=== PATIENT | male | born 1925 | race Caucasian/White ===

== ENCOUNTER 2016-08-09 10:29 | Inpatient (IN) | payer MEDICARE, BC ==
[~2016-08-09] VITALS: Ht 185.4 cm; Wt 89.9 kg
--- NOTE | ~2016-08-09 | HP ---
[facility] AGE[facility] 89 Y [address] ROOM: [place] [address] LOCATION: [facility] [place] ADMIT DATE: 08/09/2016 History & Physical DISCHARGE DATE: FAMILY PHYSICIAN: PHYSICIAN, UNKNOWN ATTENDING PHYSICIAN: Ayo Salcido DATE OF SERVICE: HISTORY OF PRESENT ILLNESS: This is an 89-year-old male who has had a gradual onset of voiding symptoms with daytime frequency every 1 hour, hesitancy, difficulty voiding, voiding small amounts. His symptoms are much worse at night. He also has had some recurrent bouts of gross hematuria. He has a past history of having a TUR of the prostate in the past. This was done in 2001. He was seen in the office on 10 July, at that time his residual urine was 385 mL. He was on Ditropan and Flomax, so the Ditropan ER 5 mg twice a day was discontinued, but this did not improve his voiding symptoms, and according to his son, he continues to have marked hesitancy, frequency, and difficulty voiding. He is seen now for suprapubic cystostomy. PAST MEDICAL HISTORY AND ILLNESSES: 1. Peptic ulcer disease. 2. Hypertension. 3. Osteoarthritis. 4. Diabetes mellitus. OPERATIONS: 1. Cholecystectomy. 2. Bilateral total knees, total hip. 3. TUR of the prostate. ALLERGIES: CELEBREX, GLIPIZIDE. PHYSICAL EXAMINATION: GENERAL: Well-developed, well-nourished male. VITAL SIGNS: 196 pounds, 138/75. CHEST: Clear. HEART: Normal sinus rhythm. ABDOMEN: Soft with no palpable masses. : Normal penis. Testicles are normal. Prostate is flat and benign to PAT[facility]GE[facility] 89 Y [address] ROOM: [place] [address] LOCATION: [facility] [place] ADMIT DATE: 08/09/2016 History & Physical DISCHARGE DATE: FAMILY PHYSICIAN: PHYSICIAN, UNKNOWN ATTENDING PHYSICIAN: Ayo Salcido palpation. RECTAL: Negative. IMPRESSION: Urinary retention with voiding symptoms. PLAN: As above. AYO K MD AIMEE EKL/modl /[id number] CC: Félix Farrell MD D: [id number] T: [id number] HISTORY & PHYSICAL
--- NOTE | ~2016-08-09 | OR ---
PATIENT'S NAME: MARGUERITE ANGELA [facility] AGE: 89 Y [address] ROOM: [place] [address] [place] [facility] [place]: 08/09/2016 OR/Procedure Report DISCHARGE DATE: FAMILY PHYSICIAN: Félix Farrell MD ATTENDING PHYSICIAN: Edmar Salcido SURGEON: Edmar Salcido MD NANNY BABYSITTER: DATE OF PROCEDURE: 08/09/2016 PREOPERATIVE DIAGNOSIS: Retention with voiding symptoms. 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 PROCEDURES: 1. Cystoscopy, TUR of prostate. 2. TUR of bladder tumor. DESCRIPTION OF PROCEDURE: After adequate anesthesia, he was prepped and draped. Cystoscope was passed. The anterior urethra was normal. He had an enlarged nodular regrowth going off the left side at the bladder neck area and then there was transitional cell carcinoma in the bladder, both on the right and left side, and at the bladder neck area where his BPH regrowth was. Resectoscope was inserted and the prostatic tissue was resected so that I could get to the transitional cell carcinoma of the bladder at the bladder neck area and then the tumor was then resected. Also, multiple tumors throughout the bladder were resected and fulgurated. 20 three-way Sepulveda catheter was inserted and he was accompanied to recovery area. EDMAR SALCIDO MD EKL/modl /[id number] CC: Féilx Farrell MD d: 08/09/16 1839 t: 08/13/16 0446, OPERATIVE SUMMARY
--- NOTE | ~2016-08-09 | DS ---
PATIENT'S NAME: MARGUERITE ANGELA [facility] AGE: 89 Y [address] ROOM: [place] [address] LOCATION: [facility] [place] ADMIT DATE: 08/09/2016 Discharge Summary DISCHARGE DATE: FAMILY PHYSICIAN: Félix Farrell MD ATTENDING PHYSICIAN: Edmar Salcido HOSPITAL COURSE: An 89-year-old male, who has had voiding symptoms and urinary retention, to have a suprapubic cystostomy. 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 He also had tumor around the bladder neck area on this side. Therefore, this area the prostate was resected and then the bladder tumors were all resected and fulgurated. He was admitted to [address] [place] [address]. He did fine until the following morning, he had some gross hematuria clots. He was taken back to the cysto room for evacuation of clots and fulguration of bleeders. His remaining hospital course was unremarkable and he was diagnosis home. DIAGNOSES: 1. Urinary retention. 2. Benign prostatic hyperplasia. 3. Transitional cell carcinoma of the bladder. OPERATIONS: 1. TUR of the prostate. 2. TUR of bladder tumors. 3. Cystoscopy evacuation of clots and fulguration of bleeders. DISPOSITION: We will keep in contact with a nursing homes and when he is stable, we will have to remove his Sepulveda catheter. EDMAR SALCIDO MD EKL/modl /[id number] CC: Félix Farrell MD d: 08/14/16816 t: 08/15/16 0437, DISCHARGE SUMMARY
--- NOTE | ~2016-08-09 | OR ---
PATIENT'S NAME: MARGUERITE ANGELA [facility] AGE: 89 Y [address] ROOM: [place] [address] LOCATION: [facility] [place] ADMIT DATE: 08/09/2016 OR/Procedure Report DISCHARGE DATE: FAMILY PHYSICIAN: Félix Farrell MD ATTENDING PHYSICIAN: Ayo Salcido SURGEON: Ayo Salcido MD COW TENDER: DATE OF PROCEDURE: 08/09/2016 PREOPERATIVE DIAGNOSIS: Postop bleeding. POSTOPERATIVE DIAGNOSES: 1. Postop bleeding. 2. Bladder clots. PROCEDURES PERFORMED: 1. Evacuation of clots. 2. Fulguration of bleeding areas. INDICATIONS: The patient had TUR of a bladder tumor yesterday. He did fine until early this morning when his urine turned grossly bloody and would not clear with continuous bladder irrigation. He was then taken to the cysto room. DESCRIPTION OF PROCEDURE: After adequate anesthesia, he was prepped and draped. A resectoscope was inserted, and with the Frannie evacuator, all the clots were irrigated from the bladder. Examination revealed some bleeding from the prostatic area, and in the bladder, one of the tumor sites, there was an inadequate clot. This was dissected off the base of the resection site, and the bleeding area was fulgurated. A 20, three-way Sepulveda catheter was inserted and irrigated easily and clearly, and he was accompanied to the recovery area. AYO SALCIDO MD EKL/modl /[id number] d: 08/10/161830 t: 08/14/16 0448, OPERATIVE SUMMARY
[~2016-08-09 10:29] MED LIST: AMARYL4 MG PO; AMBIEN5 MG PO; ASPIRIN EC81 MG PO; DULCOLAX10 MG R; FLOMAX0.4 MG PO; GLUCOPHAGE1000 MG PO; HYDRODIURIL25 MG PO; LACTULOSE10 GM/151 PO; LEVEMIR100 UNIT/1 SUB-Q; MILK OF MA400 MG/5 M PO; MOBIC15 MG PO; OXYGEN M-15 INH; PAIN RELIEVER325 MG PO; PRINIVIL OR ZES10 MG PO; PROTONIX40 MG PO; ROBITUSSIN DM120 ML PO; TOPROL XL25 MG PO; ULTRAM50 MG PO; VITAMIN D-32000 UNI1 PO; XANAX0.25 MG PO; [UNRECOGNIZED DRUG - OTHER] PO
[2016-08-09 11:27] LABS: BASOPHIL % 0.3 %; EOSINOPHIL # 0.1 K/uL (0.0-0.5); EOSINOPHIL % 1.7 %; HEMOGLOBIN 13.5 g/dL (11.0-16.0); IMMATURE GRANULOCYTE % 0.4 %; LYMPHOCYTE # 1.2 K/uL (0.8-4.0); LYMPHOCYTE % 17.4 %; MCH 27.3 pg (27.0-34.0); MCHC 33.8 gm/dL (32.0-36.5); MONOCYTE # 0.6 K/uL (0.0-1.0); MONOCYTE % 8.7 %; MPV 9.1 fl (9.4-12.4); NEUTROPHIL # (ANC) 5.1 K/uL (1.4-9.0); NEUTROPHIL % 71.5 %; NRBC % 0 /100WBC (0-0.00); PLATELET COUNT 191 K/uL (150-450); RDW-CV 14.1 % (11.9-14.6); WBC 7.1 K/uL (4.0-11.0)
[2016-08-09 11:30] LABS: RBC 4.94 M/uL (3.50-5.50)
--- NOTE | 2016-08-09 17:23 | NUR ---
Significant Event: Pt to floor from PACU at 1630 after a TURP. Bedrest. CBI running moderate rate, bloody at times then clears, probable bladder spasms, B&O prn. Clears, ADAT in am. [place] divya on left, hears a bit in right eye with hearing aid. In AFIB, telemetry ordered. Left leg brace on at all times d/t previous injury. Wears brace to right knee as needed. VS stable. Denies pain. a/o x3. Wears O2 at night. Bradycardiac in OR. Did dip to 37 briefly arrival to floor but popped right back up to 80's (AFIB). Follow up:
--- NOTE | 2016-08-10 05:14 | NUR ---
SIGNIFICANT EVENT: Patient alert &oriented. Denies pain. Hourly post op vitals from 1830 to 2130. RR 18 to 20, BP 139 to 144 over 76 to 83, P: 77 to 102, afebrile, 99 percent on 1L. B&O suppository on day shift at approx 1805, none this shift. Nucynta at 2150, Xanax at HS as scheduled. HSBG of 206, 2 units of Novolog given. L) leg brace on at all times, R) knee brace can be left off unless patient complains of pain in that extremity. IV to R) lateral FA infusing 1/2 NS. Bedrest. CBI running Moderately fast to attain light pink urine. Pleasant and cooperative with cares.
--- NOTE | 2016-08-10 14:29 | NUR ---
1200 Talked to charge nurse at [facility] in and confirmed that they would accept pt back this weekend after discharge if there were no med changes via nursing staff. Charge nurse stated that they would be able to if it was certain that there was no changes in meds because they wouldn't be able to have access to get them over the weekend. ROSA Price stated that nursing staff was almost certian there would be no changes but if there is they would be able to sent a three-day supply or so. Told her I would fax over his information and gave her ROSA Mar number. Charge nurse called ROSA Price shortly after and told her that they could only take him over the weekend if family would transport. 200 ROSA Price introduced self and CM role to patient and got phone number for pt's daughter, Sparkle at [phone]. I called Sparkle and she stated she can transport her father this weekend, but would just need help with getting him out of her car once he got to the half-way. Chris Wrote information on fax cover sheet about daughter transporting and sent pt's updates to [facility] at [phone]. Dee put sticky note on pt's chart stating daughter will transport and numbers for the half-way. Plan home likely tomorrow 08/11. CM internet architect TH.
--- NOTE | 2016-08-10 15:00 | NUR ---
Significant Event: Pt back from PACU at 0900 after a fulguration of bleeders. Must lay completely flat, was uncomfortable this afternoon so Dr. Salcido said he can have his knees up slightly. CBI running slow, urine pink to clear. C/o back pain this afternoon, good relief with [place]. Tele called around 1400, states sinus 1st degree block, asymptomatic. clear liquids. [place]. VS stable. Follow up:
--- NOTE | 2016-08-11 03:12 | NUR ---
Had some confusion mid shift- wanted to get out of bed. Patient has settled down since then- has not slept much, but is A&O at this time. Bedrest. CBI running slow. Output the color of pink lemonade. Brace to left leg at all times. Brace to right knee PRN for weakness. IV right wrist SL. Accuchecks ACHS. Mild sliding scale. O2 @ 1 ltr. Telemetry. Can return to [facility] in [place] today if no new meds at discharge.
--- NOTE | 2016-08-11 17:04 | NUR ---
Significant event: Has been confused most of shift. Tried several times this am to get out of bed, reminded not to get up. Daughter here about noon and plans to stay the night with him. He has tried to get up while she is in there also and she reminds him not to get up. CBI continues urine pale pink to light red at times.
--- NOTE | 2016-08-12 04:19 | NUR ---
Alert. Confusion has cleared up since last night. Slept majority of shift. No restlessness or pulling at tubes/lines. Bedrest. CBI running slowly. Output light pink. Brace to left lef at all times. Brace to right leg PRN for weakness. IV SL. ADA diet. Accuchecks ACHS. mild sliding scale. Telemetry. 1 ltr. O2. Daughter at bedside. Dicharge bacl to [place] when appropriate.
--- NOTE | 2016-08-12 16:04 | NUR ---
Significant event: CBI off at 0650. Urine light pink when CBI discontinued. Up to chair with 2 assist, gait belt and walker. Gait steady. Urine became more red when up to chair and then would be light pink and then red, irrigated catheter with CBI for short time and urine became pink again, did this twice. More alert and oriented today, has been sleeping at times and wakes easily. Daughter at bedside most of day, son and daughter in law here this afternoon. Follow-up: monitor urine closely.
--- NOTE | 2016-08-13 05:25 | NUR ---
A&O- still occasional confusion, but much improved. Did not set BA off at all this shift. 1 ltr O2. Bedrest until calls to check on patient later today. Output adequate, but dark red. ADA diet. Accuchecks ACHS. Mild sliding scale. Brace to left leg at all times, brace to right leg PRN weakness. 2 assist transfers. Slept well tonight. Back to [facility] in [place] at discharge.
--- NOTE | 2016-08-13 14:52 | NUR ---
SIGNIFICANT EVENT: ALERT AND ORIENTED BUT OCCASIONALLY CONFUSED. O2 TAKEN OFF DURING DAY AND PATIENT WAS ABLE TO MAINTAIN O2 STATS AROUND 97 PERCENT. ACHS ACCU CHECKS ON MILD SLIDING SCALE. BRACE TO LEFT LEG AT ALL TIMES AND BRACE ON RIGHT LEG PRN FOR WEAKNESS. BOTH BRACES WERE APPLIED THROUGHOUT SHIFT. PATIENT WAS ABLE TO AMBULATE TO DOOR ONCE DURING SHIFT WITH WALKER AND GAITBELT. 2 PERSON ASSIST WITH TRANSFERS. 4 UNITS OF INSULIN GIVEN AT 0700 AND 2 UNITS OF INSULIN GIVEN AT 1100. PATIENT DID NOT COMPLAIN OF ANY PAIN DURING SHIFT. URINE COLOR WAS PINK DURING SHIFT. FOLLOW UP: CONTINUE TO MONITOR.
--- NOTE | 2016-08-13 17:38 | NUR ---
I HAVE REVIEWED AND AGREE WITH CHARTING DONE BY SN CRISTIANO.
--- NOTE | 2016-08-14 05:27 | NUR ---
PATIENT IS ALERT X3 HE IS CONFUSED TONIGHT TO PLACE AND ROUTINE. AMBULATES WITH GB WALKER AND 2 ASSIST. WEARS 2 BRACES TO LOWER EXTREMITIES. MAY TAKE RIGHT ON OFF WHEN IN BED. WEARS 2L OF O2 AT HS. [place]. IV TO R WRIST SL. ON TELE NO CALLS THIS SHIFT. PATIENT IS HARD OF HEARING WEARS HEARING TO RIGHT EAR. ADA DIET ACHS GAVE 4 UNITS OF INSULIN THIS SHIFT. NO COMPLAINTS OF PAIN OR DISCOMFORT THIS SHIFT. REQUESTED SLEEPING PILL AT HS.
--- NOTE | 2016-08-14 08:50 | NUR ---
0850 Gretchen charge nurse stated patient can go home today, daughter will transport. 15 Called the [facility] SNF and spoke to the charge nurse. Yes he can come back today. 18 Missed call from [facility], called back. There is concern about daughter transporting. 929 Called and spoke to Ly the DON. They can come and get him but will need to leave right now. Spoke to charge nurse and patients daughter. Will go ahead with dismissal at 1030 but the [facility] van. 0935 Followed up with daughter she had no other concerns or needs. 0950 Faxed orders to SNF. Nurse number given to Charge Nurse.
--- NOTE | 2016-08-14 10:33 | NUR ---
PT IS ALERT BUT SOMETIMES CONFUSED. HARD OF HEARING. HAS TWO LEG BRACES ON AND IS A HEAVY TRANSFER WITH TWO-THREE ASSIST. DENIES PAIN. SUPRAPUBIC LAP SITE D/I. HAD A TURP, TRANS RESECECTION OF PROSTATE WITH CATHETER IN PLACE. CATH IS DRAINING PINK TINGED URINE WITH NO CLOTS. HAS SOME DRAINAGE AROUND CATHETER ALSO. VS 98.1 T., 16-R, 92% ON ROOM AIR, 84-P, 133/68 BP. BLOOD SUGAR WAS 233 AT 0800 AND SLIDING SCALE INSULIN GIVEN 2U SQ. HAD BM DURING NIGHTS. DR. SINGH WILL CALL [facility] ABOUT [place] CATHETER REMOVAL. DAUGHTER HERE.
--- NOTE | 2016-08-14 16:18 | NUR ---
Significant Event:PT. UP TO BATHROOM WITH TWO ASSIST. 3-4 ASSIST TO STAND WITH BILATERAL KNEE BRACES. DENIES PAIN. [place] BUT ALERT AND COOPERATIVE. DAUGHTER HERE. IV D/C'D PER DISCHARGE. DISCHARGE INSTRUCTIONS GIVEN AND VERBALIZED UNDERSTANDING OF BY PT AND DAUGHTER. DISCHARGE SHADIA SENT WITH DAUGHTER TO [facility] IN [facility]D. TRANSFERRED FROM CHAIR TO WHEELCHAIR WITH TWO ASSIST AND DISCHARGED PER CAREGIVER TO [place] WITH DAUGHTER. Follow up:
[2016-10-18] MEDS ORDERED: PROSCAR5 MG PO (13:23)
[2016-10-18] MEDS ORDERED: BIOFREEZE89 ML TOP (13:27)
[2016-10-18] MEDS ORDERED: CIPRO500 MG PO (13:30)
== END 2016-08-14 11:07 | DRG 714 ==
LOC: GSDC 10:29 → GMSU 17:12 → GSDC 08-10 06:00 → GMSU 08-10 06:00 → GSDC 08-14 11:07 → GMSU 08-14 11:07
PROVIDERS: ADMIT Urology
PROC: 0TBB8ZZ Excision of Bladder, Via Natural or Artificial Opening Endoscopic (ICD-10-PCS; principal; 2016-08-09)
PROC: 0T9B70Z Drainage of Bladder with Drainage Device, Via Natural or Artificial Opening (ICD-10-PCS; principal; 2016-08-09)
PROC: 0VB08ZZ Excision of Prostate, Via Natural or Artificial Opening Endoscopic (ICD-10-PCS; principal; 2016-08-09)
PROC: 0TBC8ZZ Excision of Bladder Neck, Via Natural or Artificial Opening Endoscopic (ICD-10-PCS; principal; 2016-08-09)
DX: N40.1 Benign prostatic hyperplasia with lower urinary tract symptoms (principal); E11.9 Type 2 diabetes mellitus without complications; R31.0 Gross hematuria; C67.5 Malignant neoplasm of bladder neck; K27.9 Peptic ulcer, site unspecified, unspecified as acute or chronic, without hemorrhage or perforation; R33.8 Other retention of urine; M19.90 Unspecified osteoarthritis, unspecified site; I10 Essential (primary) hypertension
CPT/HCPCS: J0713; J0744; J7030

== ENCOUNTER 2016-08-31 06:04 | Inpatient (IN) | payer MEDICARE, BC ==
[~2016-08-31] VITALS: Ht 182.9 cm; Wt 72.6 kg
--- NOTE | ~2016-08-31 | OR ---
PATIENT'S NAME: MARGUERITE ANGELA [facility] AGE: 89 Y [address] ROOM: [place] [address] LOCATION: [facility] ADMIT DATE: 08/31/2016 OR/Procedure Report DISCHARGE DATE: FAMILY PHYSICIAN: Félix Farrell MD ATTENDING PHYSICIAN: Ayo Salcido SURGEON: Ayo Salcido MD DIXONAC OPERATOR: DATE OF PROCEDURE: 08/31/2016 PREOPERATIVE DIAGNOSES: 1. Gross hematuria with clot retention. 2. History of transitional cell carcinoma of the bladder. 3. Chronic urinary retention. POSTOPERATIVE DIAGNOSES: 1. Gross hematuria with clot retention. 2. History of transitional cell carcinoma of the bladder. 3. Chronic urinary retention. PROCEDURES PERFORMED: 1. Cystoscopy and evacuation of clots. 2. Cystoscopy and fulguration of bleeding areas. 3. Suprapubic cystostomy. DESCRIPTION OF PROCEDURE: After adequate anesthesia, he was placed in dorsal lithotomy position and prepped and draped. A resectoscope was inserted, and with the Frannie evacuator, all the clots were irrigated from the bladder. Examination of the bladder was normal. His previous TUR sites were all not bleeding, but there was bleeding around the bladder neck area and in the prostatic fossa. With the resectoscope, this areas were thoroughly fulgurated. The bladder was then filled. Lowsley retractor was inserted. Small suprapubic incision was made, and the [place]owsley retractor was pushed to the bladder wall, and #24-Welsh Sepulveda catheter was attached and drawn into the bladder. The balloon was inflated. Cystoscope was reinserted. catheter was adequately placed. An 18-Welsh Sepulveda urethral catheter was inserted and they were connected to continuous bladder irrigation. PATIENT'S NAME: MARGUERITE ANGELA [facility] AGE: 89 Y [address] ROOM: [place] [id number] LOCATION: [facility] ADMIT DATE: 08/31/2016 OR/Procedure Report DISCHARGE DATE: FAMILY PHYSICIAN: Félix Farrell MD ATTENDING PHYSICIAN: Ayo Salcido AYO K MD AIMEE EKLiliana/modl /[id number] CC: Félix Farrell MD d: 08/31/16 1439 t: 09/03/16 0442, OPERATIVE SUMMARY
--- NOTE | ~2016-08-31 | DS ---
PATIENT'S NAME: MARGUERITE ANGELA [facility] AGE: 89 Y [address] ROOM: [address] [place] [address] [facility] AD[facility] DATE: 08/31/2016 Discharge Summary DISCHARGE DATE: 09/03/2016 FAMILY PHYSICIAN: Félix Farrell MD ATTENDING PHYSICIAN: Ayo Salicdo [facility] COURSE: An 89-year-old male, who was admitted with gross hematuria with clots and urinary retention. He has had voiding symptoms for quite sometime, and suprapubic catheter had been discussed with him in the past. He was seen taken to the operating room, where cystoscopy and evacuation of clots, cystoscopy and fulguration of bleeding areas, and a suprapubic cystostomy was done. While in the hospital, he had some cardiac arrhythmias and therefore he was seen by Dr. Kosta Mckenzie and felt to have some type of cardiac heart block. He was monitored with no significant changes and was then dismissed to the longterm. DIAGNOSES: 1. Gross hematuria with clot retention. 2. Chronic urinary retention. 3. Cardiac arrhythmias. OPERATION: 1. Cystoscopy and evacuation of clots. 2. Cystoscopy and fulguration of bleeding areas. 3. Suprapubic cystostomy. DISPOSITION: He is to return to the office on September 18, 2016, to see Dr. Mckenzie and to see myself. AYO SALCIDO MD EKL/modl /[id number] CC: Félix Farrell MD d: 09/04/16 1301 t: 09/05/16 0431, DISCHARGE SUMMARY
--- NOTE | ~2016-08-31 | HP ---
PATIENT'S NAME: MARGUERITE ANGELA [facility] AGE: 89 Y [address] ROOM: [place] [address] [place] [facility] [place] DATE: 08/31/2016 History & Physical DISCHARGE DATE: FAMILY PHYSICIAN: Félix Farrell MD ATTENDING PHYSICIAN: Ayo Salcido DATE OF SERVICE: HISTORY OF PRESENT ILLNESS: An 89-year-old male, who has had a gradual onset of voiding symptoms with difficulty voiding, hesitancy, voiding small amounts. He states his symptoms are much worse at night. He also has been having some recurrent bouts of gross hematuria. He had a history of a TUR of the prostate in 2001. He was seen in the office on July 10, 2016. Residual urine volume is 385 mL. He was on Ditropan and Flomax. So, the Ditropan was discontinued. He continued his Flomax, but his symptoms did not improve. Therefore, on August 09, 2016, a cysto was done with the possibility to do a suprapubic tube. However, he was found to have transitional cell carcinoma of the bladder, low- grade papillary-type lesions. These were all removed. He did have some nodular regrowth and this was resected. He was sent back to the [facility]. His catheter was removed on Saturday, August 27, 2016. He voided satisfactorily until August, when he began having gross hematuria, clots, difficulty voiding, and was then transferred here. PAST MEDICAL HISTORY: Illnesses: 1. Peptic ulcer disease. 2. Hypertension. 3. Osteoarthritis. 4. Diabetes mellitus. OPERATIONS: Cholecystectomy, bilateral total knees, TUR of the prostate, and TUR of bladder tumors. ALLERGIES: CELEBREX. PHYSICAL EXAMINATION: GENERAL: A well-developed, well-nourished, alert male. CHEST: Clear. HEART: Normal sinus rhythm. PATIENT'S NAME: MARGUERITE ANGELA [facility] AGE: 89 Y [address] ROOM: [place] [address] [place] [facility] [place]MIT DATE: 08/31/2016 History & Physical DISCHARGE DATE: FAMILY PHYSICIAN: Félix Farrell MD ATTENDING PHYSICIAN: Ayo Salcido ABDOMEN: Soft with no palpable masses. : Normal penis. Testicles are normal. Prostate is flat and benign. RECTAL: Negative. IMPRESSION: Gross hematuria with clot retention. PLAN: Cystoscopy, fulguration of bleeders, and then suprapubic tube. AYO K MD BOBBY SALCIDO/janeth /[id number] CC: Félix Farrell MD D: 610 T: 440 HISTORY & PHYSICAL
--- NOTE | ~2016-08-31 | CON ---
PATIENT'S NAME: [facility] AGE: 89 Y [address] ROOM: [id number] [place] [address] LOCATION: [facility] ADMIT DATE: 08/31/2016 Consultation DISCHARGE DATE: FAMILY PHYSICIAN: Félix Farrell MD ATTENDING PHYSICIAN: Edmar Salcido REFERRING PHYSICIAN: Edmar Salcido Jr, MD REASON FOR CONSULTATION: Bradycardia. HISTORY OF PRESENT ILLNESS: This is an 89-year-old gentleman with a history of "some atrial fibrillation." He was admitted today for placement of a suprapubic catheter as well as urethral catheter, and then fulguration of bleeders. During surgery, he was found to be bradycardic, and it was thought that he was in an atrial fibrillation. After reviewing the strips, it does look like he has periods of Mobitz I, as well as periods of Mobitz type II. His heart rates are now in the 60s, they had been in the 50s. Mr. Angela denies complaints of dizziness, although he did have problems "a long time ago" with some dizziness. He denies sudden onset of fatigue. He denies problems with shortness of breath. He states he does not walk much because of his knees. There has been no report of presyncope or syncopal episodes. PAST MEDICAL HISTORY: 1. Diabetes mellitus, type 2. 2. Hypertension. 3. BPH. 4. Transitional cell carcinoma of the bladder. 5. Osteoarthritis. 6. History of urinary retention. 7. History of gout. 8. Fractured ankle in 1972. PAST SURGICAL HISTORY: 1. 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 2. He has had right inguinal hernia repair and left inguinal hernia repair x2. 3. Cholecystectomy. 4. 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 5. He had a total left knee in 1989 and left knee revision on 03/07/1999. 6. Left knee revision with spacer placed on 07/11/2009. 7. Colonoscopy. 8. On 08/08/2016, cysto with TURB of the bladder. 9. On 08/09/2016, bladder clot evacuation with fulguration of bleeders. 10. On 08/31/2016, suprapubic catheterization with fulguration of bleeders. 11. Total right hip surgery on 01/12/2008. PATIENT'S NAME: [facility] AGE: 89 Y [address] ROOM: [id number] [place], [place] [id number] LOCATION: [facility] ADMIT DATE: 08/31/2016 Consultation DISCHARGE DATE: FAMILY PHYSICIAN: Félix Farrell MD ATTENDING PHYSICIAN: Edmar Salcido MEDICATIONS: 1. Tylenol 325 mg every four hours as needed. 2. Xanax 0.25 mg every night and every six hours p.r.n. 3. Aspirin 81 mg daily. 4. Dulcolax 10 mg rectally. 5. Vitamin D3, 4000 units daily. 6. Amaryl 4 mg two tablets every day. 7. Robitussin DM 10 mL every four hours p.r.n. 8. HydroDIURIL 12.5 mg or half of 25 mg every day. 9. Levemir 20 units every night. 10. Lactulose 45 mL every day. 11. Prinivil 10 mg daily. 12. Milk of magnesia 30 mL p.r.n. 13. Mobic 15 mg every day. 14. Metformin 1000 mg b.i.d. 15. Metoprolol 25 mg b.i.d. 16. Pantoprazole 40 mg daily. 17. Tamsulosin 0.4 mg b.i.d. 18. Tramadol 50 mg one to two tablets every 4 hours p.r.n., and he takes 50 mg every night. 19. Zicam one p.o. every three hours p.r.n. 20. Ambien 2.5 one to two tablets p.r.n. sleep. SOCIAL HISTORY: He is . He is a life-long nonsmoker. He has four alcoholic drinks on Saturday. FAMILY HISTORY: Mother had diabetes mellitus. Father of congestive heart failure. He has a son, who is alive with diabetes mellitus. REVIEW OF SYSTEMS: GENERAL: He denies complaints of increased fatigue. HEAD: No history of headache. EYES: He wears corrective lenses. EARS: He is extremely hard of hearing. NOSE: No epistaxis or rhinorrhea. MOUTH: No gingival bleeding. THROAT: He denies sore throat, hoarseness, or difficulty swallowing. No complaints of food getting stuck in his throat. GASTROINTESTINAL: Negative for nausea, vomiting, or diarrhea. GENITOURINARY: Negative for urinary tract infection. He does have problems with urinary retention. He does have transitional cell carcinoma of the bladder. PATIENT'S NAME: [facility] AGE: 89 Y [address] ROOM: [place] [address] LOCATION: [facility] ADMIT DATE: 08/31/2016 Consultation DISCHARGE DATE: FAMILY PHYSICIAN: Félix Farrell MD ATTENDING PHYSICIAN: Edmar Salcido MUSCULOSKELETAL: He has had total knees with revision in the left knee x2. He has also had a total right hip. He does not walk much due to his knees hurting. He also carries a history of gout. PSYCHIATRIC: No complaints of depression at this time. ENDOCRINE: He is diabetic, on Levemir. No polyuria or polydipsia. PHYSICAL EXAMINATION: VITAL SIGNS: He is 6 feet tall and weight is 90 kg. Blood pressure was 134/77, heart rate was 72, respirations were 16, and temperature was 97.7. SKIN: Warm, dry, and pink. His facial expressions are symmetrical. EYES: Pupils are equal, round, and reactive briskly to light. Conjunctivae are clear. NOSE: Non-deviated. NECK: Soft and supple. No lymphadenopathy or thyromegaly. CARDIOVASCULAR: Regular with an irregularity to it showing a sinus rhythm with Wenckebach as well as Mobitz type II 2:1 block. ABDOMEN: Soft. Bowel sounds are present. EXTREMITIES: Showed trace peripheral edema. Distal pulses are 2+. He does have a suprapubic catheter in place draining pink-tinged urine. LABORATORY DATA: CBC: WBC was 10.1, hemoglobin was 11.4, hematocrit was 34.2, and platelets were 246. BUN is 10, creatinine is 0.6, and potassium is 4.5. We did order a TSH, it was 3.2. ASSESSMENT AND PLAN: 1. Mobitz I and Mobitz II. We will decrease the metoprolol to 12.5 mg p.o. b.i.d., and continue to monitor him on telemetry. 2. Hypertension. We will continue all of his other medications. The assessment and plan, history of present illness, and physical exam are per Dr. Hardy Rodríguez. AMY ISLAS APRN FOR ADOLPH RODRÍGUEZ MD TGP/modl /[id number] d: 08/31/162015 t: 09/14/16 0922, CONSULTATION REPORT
[2016-08-31 06:28] LABS: HEMATOCRIT 34.2 % (33.0-50.0); HEMOGLOBIN 11.4 g/dL (11.0-16.0); MCH 26.8 pg (27.0-34.0); MCHC 33.3 gm/dL (32.0-36.5); MCV 80.5 fl (83.0-98.0); MPV 8.3 fl (9.4-12.4); RBC 4.25 M/uL (3.50-5.50); RDW-CV 13.5 % (11.9-14.6); WBC 10.1 K/uL (4.0-11.0)
[2016-08-31 06:32] LABS: PLATELET COUNT 246 K/uL (150-450)
[2016-08-31 06:45] LABS: ALBUMIN 3.1 gm/dL (3.5-5.0); ALK PHOS 104 IU/L (33-138); ALT 26 IU/L (12-78); ANION GAP 9.5 (10.0-19.0); AST 21 IU/L (10-40); BLOOD UREA NITROGEN 10 mg/dL (6-24); CALCIUM 9.1 mg/dL (8.5-10.5); CHLORIDE 99 mMol/L (96-110); CO2 32 mMol/L (22-32); CREATININE 0.6 mg/dL (0.6-1.3); ESTIMATED GFR (MDRD EQUATION) > 60; POTASSIUM 4.5 mMol/L (3.7-5.1); SODIUM 136 mMol/L (135-145); TOTAL BILIRUBIN 0.5 mg/dL (0.0-1.5); TOTAL PROTEIN 6.4 g/dL (6.0-8.4)
[2016-08-31 07:03] LABS: ABSOLUTE NEUTROPHIL CT (ANC) 7.5 K/uL (1.4-9.0); BANDED NEUTROPHIL # 0.1 K/uL (0.0-0.1); BANDED NEUTROPHILS % 1 %; LYMPHOCYTE # 1.6 K/uL (0.8-4.0); LYMPHOCYTE % 16 %; MONOCYTE # 0.8 K/uL (0.0-1.0); SEGMENTED NEUTROPHIL # 7.4 K/uL (1.4-9.0); SEGMENTED NEUTROPHIL % 73 %
--- NOTE | 2016-08-31 14:36 | NUR ---
Pt is 89 y/o male admit for inpatient for cardiac arrhythmia for Dr.EK Salcido. consulted. Pt alert and oriented x 3 but very [place]. Has R)hearing aid but took it out and put it on bedside table. Pt resides at a residential. Was originally here for outpatient cysto procedure. Hx htn,afib,O2 at HS PRN, arthritis,heartburn,constipation,urgency/frequency,bladder CA,skin CA,anxiety, DM. Pt on continuous bladder irrigation. Son at bedside.
[2016-08-31] MEDS ORDERED: TUMS X-STR300 MG PO (14:58)
[2016-08-31] MEDS ORDERED: AMBIEN5 MG PO (15:02)
[2016-08-31] MEDS ORDERED: COUGH DROPS1 EACH PO (15:06)
[2016-08-31] MEDS ORDERED: VESICARE10 MG PO (15:09)
--- NOTE | 2016-08-31 19:16 | NUR ---
D:Patient recieved from PACU at 1120. Called report at 1100. Patient being kept d/t having to cauterize some bleeders while placing suprapubic. Has uretheral catheter also. Has CBI infusing at slow-mod rate, urine is lite pink, no clots noted. Then it was noted that patient was having some changes in rhythm. Mobitz I and II. Patient then transferred to PCU for continued monitoring.
--- NOTE | 2016-08-31 19:20 | NUR ---
Significant Event:Patient has CBI infusing at slow- mod rate. Urine is light pink, no clots noted. No c/o pain. has been in SR since coming to floor. Remains on 2L O2. Follow up:Monitor CBI, and rhythm
[2016-09-01 03:56] LABS: BASOPHIL % 0.3 %; EOSINOPHIL # 0.3 K/uL (0.0-0.5); EOSINOPHIL % 3.3 %; HEMATOCRIT 30.5 % (33.0-50.0); HEMOGLOBIN 10.1 g/dL (11.0-16.0); IMMATURE GRANULOCYTE # 0.1 K/uL (0.0-0.3); IMMATURE GRANULOCYTE % 1.1 %; LYMPHOCYTE # 1.3 K/uL (0.8-4.0); LYMPHOCYTE % 13.4 %; MCH 26.7 pg (27.0-34.0); MCHC 33.1 gm/dL (32.0-36.5); MCV 80.7 fl (83.0-98.0); MONOCYTE # 0.6 K/uL (0.0-1.0); MONOCYTE % 5.9 %; MPV 8.4 fl (9.4-12.4); NEUTROPHIL # (ANC) 7.2 K/uL (1.4-9.0); NRBC % 0 /100WBC (0-0.00); PLATELET COUNT 217 K/uL (150-450); RBC 3.78 M/uL (3.50-5.50); RDW-CV 13.5 % (11.9-14.6); WBC 9.4 K/uL (4.0-11.0)
[2016-09-01 04:09] LABS: ALBUMIN 2.6 gm/dL (3.5-5.0); ANION GAP 7.3 (10.0-19.0); BLOOD UREA NITROGEN 6 mg/dL (6-24); CALCIUM 8.4 mg/dL (8.5-10.5); CHLORIDE 102 mMol/L (96-110); CO2 32 mMol/L (22-32); CREATININE 0.5 mg/dL (0.6-1.3); ESTIMATED GFR (MDRD EQUATION) > 60; MAGNESIUM 1.9 mg/dL (1.8-2.6); PHOSPHORUS 2.7 mg/dL (2.5-4.9); POTASSIUM 4.3 mMol/L (3.7-5.1); SODIUM 137 mMol/L (135-145)
--- NOTE | 2016-09-01 05:45 | NUR ---
Significant Event: A/0 X2. CONFUSED TO THE SITUATION AND PLACE AT TIMES. VERY [place]ARY[place] IGLOO. AFEBRILE. VSS ON 2L. HR 60-80'S. DROPPED TO 40'S ONE TIME WHILE SLEEPING. DENIES PAIN. IV TO R) FA WITH 1/2 NS AT 80 ML/H. SUPRAPUBIC CATHETER INTACT WITH CBI RUNNING. DRAINED 3,125 MLS OF LIGHT PINK URINE WITH NO CLOTS. DRESSING C/D/I. STILL HAS SOME OOZING OF BLOOD AT THE TIP. NO BM THIS SHIFT. EKG THIS AM. Follow up: CONTINUE WITH PLAN OF CARE.
--- NOTE | 2016-09-01 17:15 | NUR ---
PATIENT UP TO CHAIR W/ LIFT. SBP 160'S-170. HR 80'S-90'S. FAMILY AT BEDSIDE THIS AFTERNOON. SATS MID 90'S ON RA. CONTINUED CBI AT MODERATE RATE, SOME BLEEDING FROM PENIS.
--- NOTE | 2016-09-02 05:35 | NUR ---
A/Ox3. SR to Afib during shift. with HR 90-110s, SBP 120-140s. 2L o2 at night. Small clots continue out of CBI with link pink fluid noted. Follow up: Continue
--- NOTE | 2016-09-02 19:17 | NUR ---
PATIENT UP TO CHAIR, VERY HEAVY 2 ASSIST. USED TOTAL LIFT BACK TO BED. PHYSICAL THERAPY ORDERED. D/C'D CBI. SUPRAPUBIC CATH DRAINING TO RUSH BAG, DARK PINK URINE CHANGING TO LIGHT PINK URINE BY LATE IN DAY. URETHRAL CATH IN PLACE WITH CATH PLUG. GAVE NORVASC INITIAL DOSE TODAY. FAMILY AT BEDSIDE PART OF DAY.
--- NOTE | 2016-09-03 04:45 | NUR ---
Significant Event:A/Ox3, but forgetful and very [place]. VSS. 2L/NC at night per home dose. SBP 110-158. Urethral catheter removed this AM. rounded and filled out discharge instructions/meds. Suprapubic cath intact and draining light pink urine. Patient transfers as a heavy 2 assist pivot or with sit to stand lift. Follow up:Discharge to [place] today.
--- NOTE | 2016-09-03 12:10 | NUR ---
Call from MATY Hewitt telling me that doctors had rounded on Edwina and wrote dismissal orders for him to return back to [facility] whenever we could get transportation lined up. I phoned over to Zaynab at [facility], she tells me that the [facility] can be here at 1330 to pick him up and take him back. Let her know this was fine, faxed over orders to her prior to him leaving. MATY Hewitt was given the number for RN to RN report to be called before left. Marcelina also states that she notified daughter, Sparkle, that her dad would be going back to [facility] today so I didn't need to call family. No other questions, needs or concerns. CM to continue to follow and assist. Plan for return back to [facility] today.
--- NOTE | 2016-09-03 12:48 | NUR ---
A/O. VSS on RA. Denies pain. Up with 2 assist for pivot transfer. Plan to dismiss to [place] at 1400. Patient has some urethral bleeding and passed a fairly good size clot, Dr Salcido notified and is not concerned since patients urine from suprapubic is clear yellow. Suprapubic cath cleansed and 4x4 gauze placed, sutures intact.
[2016-10-18] MEDS ORDERED: PROSCAR5 MG PO (13:23)
[2016-10-18] MEDS ORDERED: BIOFREEZE89 ML TOP (13:27)
[2016-10-18] MEDS ORDERED: CIPRO500 MG PO (13:30)
== END 2016-09-03 13:55 | DRG 664 ==
LOC: GPCU 06:04 → GSDC 06:04 → GPCU 06:05 → GSDC 06:05 → GPCU 09-01 06:00
PROVIDERS: Nurse Practitioner Acute Care; ADMIT Urology
PROC: 0TCB8ZZ Extirpation of Matter from Bladder, Via Natural or Artificial Opening Endoscopic (ICD-10-PCS; principal; 2016-08-31)
PROC: 0V508ZZ Destruction of Prostate, Via Natural or Artificial Opening Endoscopic (ICD-10-PCS; 2016-08-31)
PROC: 0T9B00Z Drainage of Bladder with Drainage Device, Open Approach (ICD-10-PCS; 2016-08-31)
DX: R31.0 Gross hematuria (principal); I44.1 Atrioventricular block, second degree; E11.9 Type 2 diabetes mellitus without complications; N32.89 Other specified disorders of bladder; N40.1 Benign prostatic hyperplasia with lower urinary tract symptoms; R33.9 Retention of urine, unspecified; I49.9 Cardiac arrhythmia, unspecified; I10 Essential (primary) hypertension; M19.90 Unspecified osteoarthritis, unspecified site; Z90.49 Acquired absence of other specified parts of digestive tract; Z98.890 Other specified postprocedural states; Z88.8 Allergy status to other drugs, medicaments and biological substances; Z79.82 Long term (current) use of aspirin; Z79.899 Other long term (current) drug therapy
CPT/HCPCS: G0378; G8978; G8979; G8980; J0713; J7030; J7040